=== PATIENT | female | born 1965 | race American Indian/Alaskan Native ===

== ENCOUNTER 2018-01-06 18:35 | Emergency (ER) | payer BC, OTHER ==
[~2018-01-06] VITALS: Ht 154.9 cm; Wt 108.0 kg
[~2018-01-06 18:35] MED LIST: ACETAMINOPHEN325 M1 PO; ALBUTEROL SULF8.5 GM INH; BACTRIM DS TAB1 EACH PO; LISINOPRIL10 MG PO; LORATADINE10 MG PO; METFORMIN HCL1000 MG PO; TRAMADOL HCL50 MG PO; TRIAMTERENE-HC1 EAC3 PO; VITAMIN D3400 UNIT PO
== END 2018-01-06 21:18 | disposition home or self-care (01) ==
LOC: ED 18:35
DX: S61.031A Puncture wound without foreign body of right thumb without damage to nail, initial encounter (principal); Z23 Encounter for immunization; W26.8XXA Contact with other sharp object(s), not elsewhere classified, initial encounter
CPT/HCPCS: 90471; 90715; 99282

== ENCOUNTER 2025-09-08 17:50 | Emergency (ER) | payer OTHER, BC ==
[~2025-09-08] VITALS: Ht 154.9 cm; Wt 102.7 kg
--- OUTSIDE RECORDS SUMMARY | ~2025-09-08 | XMS | Continuity of Care Document ---
Demographics + + + | Address | [address] | | | [place] [address] | + + + | Preferred Language | Unknown | + + + | Marital Status | Never | + + + | Yazdanism Affiliation | Unknown | + + + | Race | or | + + + | Ethnic Group | Not or | + + + Author + + + | Author | [facility] | + + + | Organization | [facility] | + + + | Address | [address] | | | [place] [address] | + + + | Phone | | + + + Care Team Providers + + + + | Care Environmental Monitoring Technician Name | Role | Phone | + + + + Unavailable | Unavailable | + + + + Unavailable | Unavailable | + + + + Allergies and Intolerances + + + + + + | date | description | facility | reaction | severity | + + + + + + | 2025-09-07 | Penicillin | [facility] - | Episode of | Mild | | 00:00 | | [facility] | | | + + + + + + | 2025-09-07 | Penicillin | [facility] - | Episode of | Mild | | 00:00 | | [facility] | | | + + + + + + | 2025-09-07 | Penicillin | [facility] - | Episode of | Mild | | 00:00 | | [facility] | | | + + + + + + Encounters No information. Functional Status No information. Immunizations No information. Medications + + + + | date | description | facility | + + + + | (no date) | SITAGLIPTIN PHOS/METFORMIN | [facility] [place] [facility] | | | HCL | [facility] | + + + + | (no date) | ALBUTEROL SULFATE | [facility] [place] [facility] | | | | [facility] | + + + + | (no date) | INDOMETHACIN | [facility] [place] | | | | [facility] | + + + + | (no date) | | [facility] | | | TRIAMTERENE/HYDROCHLOROTHIA | [facility] | | | ZID | | + + + + | (no date) | HYDROCHLOROTHIAZIDE | [facility] | | | | [facility] | + + + + | (no date) | LORATADINE | [facility] | | | | [facility] | + + + + | (no date) | ACETAMINOPHEN | [facility] | | | | [facility] | + + + + | (no date) | LATANOPROST | [facility] | | | | [facility] | + + + + | (no date) | LISINOPRIL | [facility] | | | | [facility] | + + + + | (no date) | CHOLECALCIFEROL (VITAMIN | [facility] | | | D3) | [facility] | + + + + | (no date) | TRAMADOL HCL | [facility] | | | | [facility] | + + + + | (no date) | | [facility] | | | SULFAMETHOXAZOLE/TRIMETHOPR | [facility] | | | IM DS | | + + + + | (no date) | METFORMIN HCL | [facility] | | | | [facility] | + + + + Problems + + + + | date | description | facility | + + + + | 2025-09-07 00:00 | Patient left without being | [facility] | | | seen | [facility] | + + + + Procedures No information. Results/Labs No information. Social History +--------+ + + | date | description | facility | +--------+ + + Vital Signs + + + +---------+ | date | measurement | value | units | + + + +---------+ | 2025-09-07 00:00 | BMI | 42.8 | kg/m2 | + + + +---------+ | 2025-09-07 00:00 | BP_diastolic | 00 | mmHg | + + + +---------+ | 2025-09-07 00:00 | BP_systolic | 00 | mmHg | + + + +---------+ | 2025-09-07 00:00 | heart_rate | 0 | /min | + + + +---------+ | 2025-09-07 00:00 | height_metric | 154.94 | cm | + + + +---------+ | 2025-09-07 00:00 | height_standard | 61 | in | + + + +---------+ | 2025-09-07 00:00 | o2_saturation | 00 | % | + + + +---------+ | 2025-09-07 00:00 | respiration_rate | 0 | /min | + + + +---------+ | 2025-09-07 00:00 | | 0 | F | | | temperature_standar | | | | | d | | | + + + +---------+ | 2025-09-07 00:00 | weight_metric | 102.699 | kg | + + + +---------+ | 2025-09-07 00:00 | weight_standard | 226.412 | lb | + + + +---------+"
[~2025-09-08 17:50] MED LIST changes: +COLCHICINE0.6 M1 PO; +HYDROCHLOROTH12.5 M1 PO; +INDOMETHACIN25 MG PO; +JANUMET XR 50-1 EAC1 PO; +LATANOPROST2.5 ML OPTH
--- OUTSIDE RECORDS SUMMARY | 2025-09-08 17:57 | XMS ---
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 Soni has no Care Guidelines for this patient. Ry VISIT COUNT (12 MO.) [facility] TOTAL 2 NOTE: Visits indicate total known visits. ED/C VISIT TRACKING (12 MO.) 09/08/2025 17:51 [facility] [place] TYPE: Emergency COMPLAINT: - FALL 09/07/2025 17:36 [facility] [place] TYPE: Emergency COMPLAINT: - FALL INPATIENT VISIT TRACKING (12 MO.) No inpatient visits to display in this time frame [id number]
[2025-09-08] MEDS ORDERED: HYDROCODONE/ACETA 5/325 TAB PO ONE (21:15)
[2025-09-08] MEDS ORDERED: TRAMADOL HCL50 MG PO (22:31)
[2025-09-08] MEDS ORDERED: TRAMADOL HCL 50 MG HOME.PACK PO ONE (23:00)
[2025-09-08 23:04] VITALS: BP 150/85
== END 2025-09-08 23:09 | disposition home or self-care (01) ==
LOC: ED 17:50
DX: S96.912A Strain of unspecified muscle and tendon at ankle and foot level, left foot, initial encounter (principal); S76.012A Strain of muscle, fascia and tendon of left hip, initial encounter; S73.102A Unspecified sprain of left hip, initial encounter; S83.92XA Sprain of unspecified site of left knee, initial encounter; S93.402A Sprain of unspecified ligament of left ankle, initial encounter; I10 Essential (primary) hypertension; E11.9 Type 2 diabetes mellitus without complications; J45.909 Unspecified asthma, uncomplicated; W01.0XXA Fall on same level from slipping, tripping and stumbling without subsequent striking against object, initial encounter; Z79.84 Long term (current) use of oral hypoglycemic drugs; Z79.899 Other long term (current) drug therapy; Z88.0 Allergy status to penicillin
CPT/HCPCS: 73502; 73560; 73610; 99283; A9270